=== PATIENT | male | born 1980 ===

== ENCOUNTER → 2020-11-01 20:20 | Outpatient (CLI) | payer BC ==
[2020-11-01 20:33] LABS: BASOPHILS 1.2 % (0-2); EOSINOPHILS 0.1 % (0-7); HEMATOCRIT 36.5 % (42.0-54.0); HEMOGLOBIN 12.1 g/dL (13.5-17.5); LYMPHOCYTES 29.9 % (15-50); MCH 29.7 pg (26.0-34.0); MCHC 33.2 g/dL (31.0-37.0); MCV 89.3 fL (80.0-100.0); MEAN PLATELET VOLUME 7.5 fL (7.4-10.4); MONOCYTES 5.6 % (2-11); NEUTROPHILS 63.2 % (40-80); PLATELET COUNT 398 10x3/uL (130-400); RBC 4.09 10x6/uL (4.20-6.10); RDW 13.5 % (11.5-14.5); WBC 9.5 10x3/uL (4.8-10.8)
[2020-11-01 21:36] LABS: ERYTHROCYTE SEDIMENTATION RATE 14 mm/hr (0-15)
== END | disposition home or self-care (01) ==
LOC: D.LABREF 20:20
PROVIDERS: ATTEND Clinical Nurse Specialist Family Health
DX: M25.521 Pain in right elbow (principal)